=== PATIENT | female | born 1980 | race Caucasian/White ===

== ENCOUNTER 2017-03-17 19:51 | Emergency (ER) | payer MEDICAID ==
[~2017-03-17] VITALS: Ht 162.5 cm; Wt 61.2 kg
[~2017-03-17 19:51] MED LIST: BACTRIM DS 8001 TA1 PO; ULTRAM50 MG PO
[2017-03-17] MEDS ORDERED: NAPROSYN500 MG PO (20:14)
[2017-03-17] MEDS ORDERED: KEFLEX500 M1 PO (20:14)
== END 2017-03-17 20:29 | disposition home or self-care (01) ==
LOC: ED 19:51
DX: S61.011A Laceration without foreign body of right thumb without damage to nail, initial encounter (principal); F17.200 Nicotine dependence, unspecified, uncomplicated; W25.XXXA Contact with sharp glass, initial encounter; Y93.89 Activity, other specified; Y92.009 Unspecified place in unspecified non-institutional (private) residence as the place of occurrence of the external cause; Y99.9 Unspecified external cause status

== ENCOUNTER 2017-05-11 16:17 | Inpatient (IN) | payer MEDICAID ==
[~2017-05-11] VITALS: Ht 162.5 cm; Wt 65.3 kg
[~2017-05-11 16:17] MED LIST changes: +KEFLEX500 M1 PO; +NAPROSYN500 MG PO
[2017-05-11 16:48] VITALS: BP 134/80
[2017-05-11 17:26] LABS: BILIRUBIN 1+ (NEGATIVE); BLOOD NEGATIVE (NEGATIVE); CLARITY SL CLOUDY (CLEAR); COLOR YELLOW (YELLOW); GLUCOSE NEGATIVE (NEGATIVE); KETONE NEGATIVE (NEGATIVE); LEUKO ESTERASE NEGATIVE (NEGATIVE); NITRITE NEGATIVE (NEGATIVE); PH 5.5 (5.0-9.0); PROTEIN TRACE (NEGATIVE); SPECIFIC GRAVITY >= 1.030 (1.005-1.030)
[2017-05-11 17:31] LABS: BASO # 0.1 10*3/uL (0.0-0.1); BASO % 0.6 % (0.0-1.0); EOS # 0.1 10*3/uL (0.0-0.4); HEMATOCRIT 41.9 % (37.0-47.0); LYMPH # 3.1 10*3/uL (1.3-4.4); LYMPH % 26.4 % (27.0-41.0); MEAN CELL VOLUME 93.3 fl (81.0-99.0); MEAN CORPUSCULAR HGB 31.2 pg (27.0-31.0); MEAN CORPUSCULAR HGB CONC 33.4 g/dl (33.0-37.0); MEAN PLATELET VOLUME 9.8 fl (9.6-12.3); MONO # 1.1 10*3/uL (0.1-1.0); MONO % 9.3 % (3.0-9.0); NEUT # 7.4 10*3/uL (2.3-7.9); NEUT % 62.4 % (47.0-73.0); PLATELET COUNT AUTOMATED 176 10*3/uL (130-400); RED BLOOD COUNT 4.49 10*6/uL (4.10-5.10); WHITE BLOOD COUNT 11.9 10*3/uL (4.8-10.8)
[2017-05-11 17:34] LABS: URINE AMPHETAMINES < 1000 (1000ng/ml); URINE BARBITURATES < 200 (200ng/ml); URINE COCAINE > 300 (300ng/ml)
[2017-05-11 17:39] LABS: INTERNATIONAL NORM RATIO 1.1 (2.0-3.5)
[2017-05-11 17:41] LABS: BACTERIA 1+; MUCOUS 1+
[2017-05-11 17:42] LABS: EPITHELIAL CELLS 21-30
[2017-05-11 17:43] LABS: URINE REFLEX COMMENT NO (NO)
[2017-05-11 17:48] LABS: ALBUMIN 3.5 gm/dl (3.1-4.5); ALKALINE PHOSPHATASE 75 U/L (45-117); BILIRUBIN, TOTAL 0.6 mg/dl (0.2-1.0); BUN 12 mg/dl (7-24); CARBON DIOXIDE 27 mmol/L (21-32); CHLORIDE 105 mmol/L (98-107); EST GLOM FILT AFRICAN AMERICAN > 60 ml/min; GLUCOSE 89 mg/dL (65-99); POTASSIUM 3.8 mmol/L (3.5-5.1); SGOT/AST 32 IU/L (3-35); SGPT/ALT 32 U/L (12-78); SODIUM 142 mmol/L (136-145); TOTAL PROTEIN 8.2 gm/dL (6.4-8.2)
[2017-05-11 20:00] VITALS: BP 107/77
[2017-05-12] VITALS: BP 104/73
[2017-05-12 04:00] VITALS: BP 96/70
[2017-05-12 08:00] VITALS: BP 96/51
[2017-05-12 12:00] VITALS: BP 111/48; BP 94/79
== END 2017-05-12 15:34 | disposition left against medical advice (07) | DRG 894 ==
LOC: 4E 16:17
PROVIDERS: Hospitalist
DX: F11.23 Opioid dependence with withdrawal (principal); F14.10 Cocaine abuse, uncomplicated; G25.81 Restless legs syndrome; F41.9 Anxiety disorder, unspecified; Z88.6 Allergy status to analgesic agent; Z88.5 Allergy status to narcotic agent; F12.10 Cannabis abuse, uncomplicated; Z71.6 Tobacco abuse counseling; D72.829 Elevated white blood cell count, unspecified; Z53.21 Procedure and treatment not carried out due to patient leaving prior to being seen by health care provider

== ENCOUNTER 2017-08-22 14:39 | Emergency (ER) | payer MEDICAID ==
[~2017-08-22] VITALS: Ht 162.5 cm; Wt 62.1 kg
[2017-08-22 15:26] LABS: BILIRUBIN NEGATIVE (NEGATIVE); BLOOD 2+ (NEGATIVE); CLARITY CLOUDY (CLEAR); COLOR YELLOW (YELLOW); GLUCOSE NEGATIVE (NEGATIVE); KETONE NEGATIVE (NEGATIVE); LEUKO ESTERASE 3+ (NEGATIVE); NITRITE POSITIVE (NEGATIVE); SPECIFIC GRAVITY 1.025 (1.005-1.030)
[2017-08-22 15:33] LABS: BACTERIA 4+; EPITHELIAL CELLS 35-40; RBC 41-50 rbc/hpf (0-2); WBC 51-100 wbc/hpf (0-5)
[2017-08-22] MEDS ORDERED: MACROBID100 M1 PO (15:51)
== END 2017-08-22 16:09 | disposition home or self-care (01) ==
LOC: ED 14:39
PROVIDERS: Physician Assistant
DX: N30.01 Acute cystitis with hematuria (principal); A59.9 Trichomoniasis, unspecified; F17.200 Nicotine dependence, unspecified, uncomplicated; Z88.5 Allergy status to narcotic agent

== ENCOUNTER 2018-02-18 05:22 | Inpatient (IN) | payer MEDICAID ==
[~2018-02-18] VITALS: Ht 162.5 cm; Wt 69.9 kg
[~2018-02-18 05:22] MED LIST changes: +MACROBID100 M1 PO
[2018-02-18 05:24] VITALS: BP 127/91
[2018-02-18 05:52] LABS: BILIRUBIN 1+ (NEGATIVE); BLOOD 1+ (NEGATIVE); CLARITY CLOUDY (CLEAR); COLOR YELLOW (YELLOW); GLUCOSE NEGATIVE (NEGATIVE); KETONE NEGATIVE (NEGATIVE); LEUKO ESTERASE 2+ (NEGATIVE); NITRITE POSITIVE (NEGATIVE); SPECIFIC GRAVITY 1.025 (1.005-1.030)
[2018-02-18 06:00] LABS: URINE AMPHETAMINES < 1000 (1000ng/ml); URINE BARBITURATES < 200 (200ng/ml); URINE BENZODIAZEPINES < 200 (200ng/ml); URINE CANNABINOIDS (THC) < 50 (50ng/ml); URINE COCAINE > 300 (300ng/ml); URINE METHADONE < 300 (300ng/ml); URINE OPIATES > 300 (300ng/ml)
[2018-02-18 06:04] LABS: URINE PHENCYCLIDINE < 25 (25ng/ml)
[2018-02-18 06:09] LABS: BACTERIA 4+; WBC 16-20 wbc/hpf (0-5)
[2018-02-18 06:27] LABS: HEMATOCRIT 45.3 % (37.0-47.0); HEMOGLOBIN 14.8 g/dl (12.0-16.0); MEAN CELL VOLUME 91.3 fl (81.0-99.0); MEAN CORPUSCULAR HGB 29.8 pg (27.0-31.0); MEAN CORPUSCULAR HGB CONC 32.7 g/dl (33.0-37.0); MEAN PLATELET VOLUME 9.8 fl (9.6-12.3); PLATELET COUNT AUTOMATED 162 10*3/uL (130-400); RED BLOOD COUNT 4.96 10*6/uL (4.10-5.10); RED CELL DISTRI WIDTH 12.9 % (0-14.5); WHITE BLOOD COUNT 22.8 10*3/uL (4.8-10.8)
[2018-02-18 06:41] LABS: ALBUMIN 3.5 gm/dl (3.1-4.5); ALKALINE PHOSPHATASE 68 U/L (45-117); BUN 11 mg/dl (7-24); CHLORIDE 101 mmol/L (98-107); CREATININE 0.86 mg/dL (0.55-1.02); SGOT/AST 22 IU/L (3-35); SGPT/ALT 21 U/L (12-78); SODIUM 134 mmol/L (136-145); TOTAL PROTEIN 8.3 gm/dL (6.4-8.2)
[2018-02-18 06:56] LABS: BASOPHILS 1 % (0-1); PLATELET SUFFICIENCY NORMAL (NORMAL); TOTAL CELLS COUNTED 100 #CELLS
[2018-02-18 07:38] VITALS: BP 125/80
[2018-02-18 07:55] VITALS: BP 120/80
== END 2018-02-18 11:30 | disposition left against medical advice (07) | DRG 603 ==
LOC: ED 05:22 → EDHOLD 06:42 → 4E 06:42
PROVIDERS: Emergency Medicine Emergency Medical Services
DX: L03.114 Cellulitis of left upper limb (principal); F11.90 Opioid use, unspecified, uncomplicated; F14.90 Cocaine use, unspecified, uncomplicated; F12.90 Cannabis use, unspecified, uncomplicated; F19.10 Other psychoactive substance abuse, uncomplicated; Z53.21 Procedure and treatment not carried out due to patient leaving prior to being seen by health care provider; Z88.6 Allergy status to analgesic agent; Z87.440 Personal history of urinary (tract) infections; Z82.49 Family history of ischemic heart disease and other diseases of the circulatory system; Z72.0 Tobacco use

== ENCOUNTER 2018-02-19 15:01 | Inpatient (IN) | payer MEDICAID ==
[~2018-02-19] VITALS: Ht 162.5 cm; Wt 70.3 kg
--- NOTE | ~2018-02-19 | O ---
[place], [place] OPERATIVE NOTE NAME: YONATHAN TERRELL UNIT #: [id number] ROOM: 532 DOCTOR: TAI VALLEJO DO BIRTHDATE: [birth year] DOS: 02/20/2018 PREPROCEDURE DIAGNOSES: Left hand cellulitis and abscess. POSTOPERATIVE DIAGNOSES: Left hand cellulitis and abscess. PROCEDURES: Incision, drainage and debridement of left hand cellulitis and abscess. SURGEON: Tai Vallejo DO SAFE AND VAULT MECHANIC: Jt Lubin DO. ANESTHESIA: Sergio, CUSTOM BOW MAKER and general with LMA intubation. INDICATIONS: The patient is a 38-year-old female with a history of increasing erythema, pain and swelling in the left hand. She denies recent IV drug use, but states she has used IV drugs in the past. She states that she tried to drain her own hand using a razor blade. This was along the ulnar border of the hand. The hand was red, swollen and tender on both the dorsal and the volar sides. The fingers were not significantly swollen. There was good capillary refill and sensation. PROCEDURE IN DETAIL: The left hand was marked in the holding area. The patient was brought to the operative suite. Tourniquet was applied to the left upper arm, but not inflated. A general anesthetic with LMA intubation was performed. Timeout was performed. Left upper extremity was prepped and draped in the usual orthopedic manner. The self-inflicted laceration at the ulnar border of the thenar eminence was approximately 1 cm in length. This was extended 1 cm in each direction proximally and distally. Subcutaneous tissue was spread down through the fascia. Gross purulence was present at the wound and was cultured. The incision was irrigated with 3 liters of normal saline both volar and dorsally. A second incision was made at the dorsal hand approximately 1 cm in length. Subcutaneous tissue was spread down to the level of the interosseous muscles. There was no further purulence at the dorsal surface of the hand. The soft tissue was spread towards the middle of the palm. No further purulence was noted. The ulnar incision was packed with iodoform gauze soaked in Marcaine 0.5% plain. The dorsal incision was soaked in a similar manner. The hand was injected with Marcaine 0.5% plain. Adaptic, cast padding, 4 x 4 and a well-padded volar splint was applied. The anesthetic was reversed. The patient was extubated and taken to recovery room in satisfactory condition. [place], [place] OPERATIVE NOTE NAME: YONATHAN TERRELL UNIT #: [id number] ROOM: [facility] DOCTOR: TAI VALLEJO DO BIRTHDATE: [birth year] Sponge and needle count correct. ESTIMATED BLOOD LOSS: 20 mL. SPECIMENS: Culture. DRAINS: None. IMPLANTS: Two separate pieces of 0.5 inch iodoform. COMPLICATIONS: None. TAI VALLEJO DO CM:OPRECORD:OPERATIVE NOTE [id number] TAI VALLEJO DO 02/28/18 0718 interface
[2018-02-19 15:05] VITALS: BP 99/73
[2018-02-19 16:09] LABS: HEMATOCRIT 40.5 % (37.0-47.0); HEMOGLOBIN 13.6 g/dl (12.0-16.0); MEAN CELL VOLUME 90.2 fl (81.0-99.0); MEAN CORPUSCULAR HGB 30.3 pg (27.0-31.0); MEAN CORPUSCULAR HGB CONC 33.6 g/dl (33.0-37.0); PLATELET COUNT AUTOMATED 164 10*3/uL (130-400); RED BLOOD COUNT 4.49 10*6/uL (4.10-5.10); RED CELL DISTRI WIDTH 12.8 % (0-14.5)
[2018-02-19 16:15] LABS: BILIRUBIN 1+ (NEGATIVE); BLOOD 2+ (NEGATIVE); CLARITY CLOUDY (CLEAR); COLOR YELLOW (YELLOW); GLUCOSE NEGATIVE (NEGATIVE); KETONE TRACE (NEGATIVE); LEUKO ESTERASE NEGATIVE (NEGATIVE); NITRITE POSITIVE (NEGATIVE); PH 5.5 (5.0-9.0); SPECIFIC GRAVITY >= 1.030 (1.005-1.030)
[2018-02-19 16:23] LABS: URINE AMPHETAMINES < 1000 (1000ng/ml); URINE BARBITURATES < 200 (200ng/ml); URINE BENZODIAZEPINES < 200 (200ng/ml); URINE CANNABINOIDS (THC) > 50 (50ng/ml); URINE COCAINE > 300 (300ng/ml); URINE METHADONE < 300 (300ng/ml); URINE OPIATES > 300 (300ng/ml)
[2018-02-19 16:24] LABS: ALBUMIN 3.2 gm/dl (3.1-4.5); ALKALINE PHOSPHATASE 68 U/L (45-117); BUN 12 mg/dl (7-24); CHLORIDE 101 mmol/L (98-107); CREATININE 0.73 mg/dL (0.55-1.02); POTASSIUM 3.9 mmol/L (3.5-5.1); SGOT/AST 26 IU/L (3-35); SGPT/ALT 21 U/L (12-78); SODIUM 134 mmol/L (136-145); TOTAL PROTEIN 7.8 gm/dL (6.4-8.2)
[2018-02-19 16:24] LABS: BACTERIA 2+; MUCOUS 1+
[2018-02-19 16:25] LABS: URINE PHENCYCLIDINE < 25 (25ng/ml)
[2018-02-19 16:30] LABS: PLATELET SUFFICIENCY NORMAL (NORMAL); TOTAL CELLS COUNTED 100 #CELLS
[2018-02-19 18:15] VITALS: BP 119/68
[2018-02-19 18:31] VITALS: BP 119/68
[2018-02-19 20:00] VITALS: BP 145/58
[2018-02-20] VITALS (12 sets, daily range): BP systolic 100–121; BP diastolic 63–90
[2018-02-20 06:54] LABS: ALBUMIN 2.4 gm/dl (3.1-4.5); BUN 13 mg/dl (7-24); CHLORIDE 107 mmol/L (98-107); CHOLESTEROL 120 mg/dL (<200); CREATININE 0.74 mg/dL (0.55-1.02); PHOSPHOROUS 2.4 mg/dL (2.5-4.9); POTASSIUM 3.5 mmol/L (3.5-5.1); SGOT/AST 29 IU/L (3-35); SGPT/ALT 17 U/L (12-78); SODIUM 138 mmol/L (136-145); TOTAL PROTEIN 6.5 gm/dL (6.4-8.2); TRIGLYCERIDES 83 mg/dl (<150); VLDL CHOLESTEROL 17 mg/dL (6-40)
[2018-02-20 06:57] LABS: BASO % 0.2 % (0.0-1.0); EOS # 0.2 10*3/uL (0.0-0.4); EOS % 1.6 % (1.0-4.0); HEMATOCRIT 40.3 % (37.0-47.0); HEMOGLOBIN 13.2 g/dl (12.0-16.0); LYMPH # 1.4 10*3/uL (1.3-4.4); LYMPH % 10.4 % (27.0-41.0); MEAN CORPUSCULAR HGB 30.1 pg (27.0-31.0); MEAN CORPUSCULAR HGB CONC 32.8 g/dl (33.0-37.0); MEAN PLATELET VOLUME 10.3 fl (9.6-12.3); MONO # 0.9 10*3/uL (0.1-1.0); MONO % 6.3 % (3.0-9.0); NEUT # 11.3 10*3/uL (2.3-7.9); NEUT % 81.1 % (47.0-73.0); PLATELET COUNT AUTOMATED 125 10*3/uL (130-400); RED BLOOD COUNT 4.38 10*6/uL (4.10-5.10); RED CELL DISTRI WIDTH 12.8 % (0-14.5); WHITE BLOOD COUNT 13.9 10*3/uL (4.8-10.8)
[2018-02-20 07:00] LABS: ALKALINE PHOSPHATASE 65 U/L (45-117); HDL CHOLESTEROL 26 mg/dl (40-60); LDL CHOLESTEROL 77 mg/dL (9-159); THYROID STIM HORMONE (HS) 0.755 uIU/ml (0.358-4.75)
[2018-02-21] VITALS: BP 116/76
== END 2018-02-21 10:45 | disposition left against medical advice (07) | DRG 579 ==
LOC: ED 15:01 → EDHOLD 17:23 → 5E 17:23
PROVIDERS: Internal Medicine; Nurse Practitioner Family
PROC: 0J9K0ZZ Drainage of Left Hand Subcutaneous Tissue and Fascia, Open Approach (ICD-10-PCS; principal; 2018-02-19)
PROC: 2W3FX1Z Immobilization of Left Hand using Splint (ICD-10-PCS; 2018-02-19)
DX: L02.512 Cutaneous abscess of left hand (principal); E43 Unspecified severe protein-calorie malnutrition; K76.0 Fatty (change of) liver, not elsewhere classified; L03.114 Cellulitis of left upper limb; E87.1 Hypo-osmolality and hyponatremia; N39.0 Urinary tract infection, site not specified; E83.39 Other disorders of phosphorus metabolism; R73.9 Hyperglycemia, unspecified; N83.202 Unspecified ovarian cyst, left side; F11.10 Opioid abuse, uncomplicated; F17.200 Nicotine dependence, unspecified, uncomplicated; F12.10 Cannabis abuse, uncomplicated; F14.10 Cocaine abuse, uncomplicated; E53.8 Deficiency of other specified B group vitamins; Z53.21 Procedure and treatment not carried out due to patient leaving prior to being seen by health care provider; Z82.49 Family history of ischemic heart disease and other diseases of the circulatory system; Z71.6 Tobacco abuse counseling; Z68.25 Body mass index [BMI] 25.0-25.9, adult

== ENCOUNTER 2018-11-04 22:20 | Emergency (ER) | payer MEDICAID ==
[~2018-11-04] VITALS: Ht 165.1 cm; Wt 81.6 kg
--- NOTE | ~2018-11-04 | EKG ---
[place], [place] ELECTROCARDIOGRAM REPORT NAME: YONATHAN TERRELL UNIT #: [id number] ROOM: DOCTOR: EPIPHANY DRAFT REPORT BIRTHDATE: [birth year] [facility] Test Date: 2018-11-04 Test Time: 22:50:48 Pat Name: YONATHAN TERRELL Department: ED Room: 1 Gender: F Fluid Power Mechanic: Dian Ulloa : 1980 Requested By: CARLOS MCLAUGHLIN Order Number: [id number] Reading MD: Santiago Mejia MD Measurements Intervals [place] Rate: 80 P: 65 IL: 152 QRS: 62 QRSD: 88 T: 51 QT: 388 QTc: 448 Interpretive Statements Sinus rhythm Abnormal R-wave progression, early transition Nonspecific T abnormalities, anterior leads Compared to ECG 10/31/2018 12:29:54 No significant changes Electronically Signed On 11-07-2018 8:25:05 PST by Santiago Mejia MD CM:EKGRPT:ELECTROCARDIOGRAM REPORT [id number] CARLOS MCLAUGHLIN MD EPIPHANY DRAFT REPORT CARLOS MCLAUGHLIN MD
[2018-11-04 22:55] LABS: HEMATOCRIT 35.2 % (37.0-47.0); HEMOGLOBIN 11.7 g/dl (12.0-16.0); MEAN CELL VOLUME 92.1 fl (81.0-99.0); MEAN CORPUSCULAR HGB 30.6 pg (27.0-31.0); MEAN CORPUSCULAR HGB CONC 33.2 g/dl (33.0-37.0); MEAN PLATELET VOLUME 9.6 fl (9.6-12.3); PLATELET COUNT AUTOMATED 170 10*3/uL (130-400); RED BLOOD COUNT 3.82 10*6/uL (4.10-5.10); RED CELL DISTRI WIDTH 13.9 % (0-14.5); WHITE BLOOD COUNT 12.3 10*3/uL (4.8-10.8)
[2018-11-04 23:10] LABS: ALKALINE PHOSPHATASE 51 U/L (45-117); BUN 12 mg/dl (7-24); CHLORIDE 112 mmol/L (98-107); CREATININE 0.84 mg/dL (0.55-1.02); SGOT/AST 44 IU/L (3-35); SGPT/ALT 50 U/L (12-78); SODIUM 143 mmol/L (136-145)
[2018-11-04 23:12] LABS: ACETAMINOPHEN (TYLENOL) < 5.0 ug/ml (10-30)
[2018-11-04 23:15] LABS: PLATELET SUFFICIENCY NORMAL (NORMAL); TOTAL CELLS COUNTED 100 #CELLS
[2018-11-04 23:19] LABS: ETHYL ALCOHOL < 3.0 mg/dl (<3)
== END 2018-11-05 00:20 | disposition home or self-care (01) ==
LOC: ED 22:20
PROVIDERS: Emergency Medicine Emergency Medical Services
DX: T50.901A Poisoning by unspecified drugs, medicaments and biological substances, accidental (unintentional), initial encounter (principal); R09.2 Respiratory arrest; E87.6 Hypokalemia; R00.0 Tachycardia, unspecified; R23.0 Cyanosis; R40.20 Unspecified coma; Y92.89 Other specified places as the place of occurrence of the external cause

== ENCOUNTER 2018-11-08 | Emergency (ER) | payer MEDICAID ==
[2018-11-08 14:25] LABS: BASO % 0.2 % (0.0-1.0); EOS # 0.1 10*3/uL (0.0-0.4); EOS % 0.5 % (1.0-4.0); HEMATOCRIT 38.2 % (37.0-47.0); HEMOGLOBIN 12.6 g/dl (12.0-16.0); LYMPH # 1.3 10*3/uL (1.3-4.4); LYMPH % 9.5 % (27.0-41.0); MEAN CELL VOLUME 93.6 fl (81.0-99.0); MEAN CORPUSCULAR HGB 30.9 pg (27.0-31.0); MEAN PLATELET VOLUME 9.5 fl (9.6-12.3); MONO # 0.8 10*3/uL (0.1-1.0); MONO % 5.9 % (3.0-9.0); NEUT # 10.9 10*3/uL (2.3-7.9); NEUT % 83.1 % (47.0-73.0); PLATELET COUNT AUTOMATED 166 10*3/uL (130-400); RED BLOOD COUNT 4.08 10*6/uL (4.10-5.10); RED CELL DISTRI WIDTH 14.4 % (0-14.5); WHITE BLOOD COUNT 13.1 10*3/uL (4.8-10.8)
[2018-11-08 14:40] LABS: ALBUMIN 3.2 gm/dl (3.1-4.5); ALKALINE PHOSPHATASE 48 U/L (45-117); BUN 12 mg/dl (7-24); CHLORIDE 99 mmol/L (98-107); CREATININE 0.96 mg/dL (0.55-1.02); POTASSIUM 3.6 mmol/L (3.5-5.1); SGOT/AST 21 IU/L (3-35); SGPT/ALT 31 U/L (12-78); SODIUM 137 mmol/L (136-145); TOTAL PROTEIN 7.6 gm/dL (6.4-8.2)
[2018-11-08 14:48] LABS: B-hCG (QUALITATIVE) NEGATIVE (NEGATIVE)
[2018-11-08 14:51] LABS: ACETAMINOPHEN (TYLENOL) < 5.0 ug/ml (10-30); ETHYL ALCOHOL < 3.0 mg/dl (<3)
[2018-11-08 15:29] LABS: BILIRUBIN NEGATIVE (NEGATIVE); BLOOD 1+ (NEGATIVE); CLARITY CLOUDY (CLEAR); COLOR YELLOW (YELLOW); GLUCOSE TRACE (NEGATIVE); KETONE NEGATIVE (NEGATIVE); LEUKO ESTERASE 1+ (NEGATIVE); NITRITE NEGATIVE (NEGATIVE); SPECIFIC GRAVITY 1.025 (1.005-1.030)
[2018-11-08 15:46] LABS: EPITHELIAL CELLS 16-20
[2018-11-08 15:47] LABS: BACTERIA 4+
[2018-11-08 15:50] LABS: URINE AMPHETAMINES < 1000 (1000ng/ml); URINE BARBITURATES < 200 (200ng/ml); URINE BENZODIAZEPINES < 200 (200ng/ml); URINE CANNABINOIDS (THC) < 50 (50ng/ml); URINE COCAINE > 300 (300ng/ml); URINE METHADONE < 300 (300ng/ml); URINE OPIATES < 300 (300ng/ml)
[2018-11-08 15:52] LABS: URINE PHENCYCLIDINE < 25 (25ng/ml)
[2018-11-08] MEDS ORDERED: NARCAN4 MG NAS (15:53)
== END 2018-11-08 17:35 | disposition home or self-care (01) ==
PROVIDERS: Emergency Medicine
DX: S20.219A Contusion of unspecified front wall of thorax, initial encounter (principal); S40.022A Contusion of left upper arm, initial encounter; T40.601A Poisoning by unspecified narcotics, accidental (unintentional), initial encounter; F19.10 Other psychoactive substance abuse, uncomplicated; F11.90 Opioid use, unspecified, uncomplicated; R41.0 Disorientation, unspecified; R11.0 Nausea; F12.10 Cannabis abuse, uncomplicated; F17.200 Nicotine dependence, unspecified, uncomplicated; G40.909 Epilepsy, unspecified, not intractable, without status epilepticus; X58.XXXA Exposure to other specified factors, initial encounter; Y93.89 Activity, other specified; Y92.481 Parking lot as the place of occurrence of the external cause; Y99.8 Other external cause status

== ENCOUNTER 2019-06-21 11:32 | Inpatient (IN) | payer SELFPAY ==
[~2019-06-21] VITALS: Wt 67.1 kg
--- NOTE | ~2019-06-21 | EKG ---
[place], [place] ELECTROCARDIOGRAM REPORT NAME: YONATHAN TERRELL UNIT #: [id number] ROOM: [facility] DOCTOR: BEBE DRAFT REPORT BIRTHDATE: [birth year] [facility] Test Date: 2019-06-21 Test Time: 12:03:16 Pat Name: YONATHAN TERRELL Department: Room: [facility] Gender: F Getter Operator: : 1980 Requested By: DAISY ABDULLAHI Order Number: [id number] Reading MD: Chalino Bach MD Measurements Intervals Wilson Rate: 114 P: 52 TN: 162 QRS: 65 QRSD: 70 T: 65 QT: 319 QTc: 440 Interpretive Statements Sinus tachycardia Borderline repolarization abnormality Electronically Signed On 06-22-2019 8:03:52 PDT by Chalino Bach MD CM:EKGRPT:ELECTROCARDIOGRAM REPORT [id number] DAISY SPENCE DRAFT REPORT DAISY ABDULLAHI MD
[~2019-06-21 11:32] MED LIST changes: +NARCAN4 MG NAS
[2019-06-21 11:35] VITALS: BP 125/71
[2019-06-21 12:16] LABS: BASO # 0.1 10*3/uL (0.0-0.1); BASO % 0.3 % (0.0-1.0); EOS # 0.1 10*3/uL (0.0-0.4); EOS % 0.3 % (1.0-4.0); HEMATOCRIT 48.9 % (37.0-47.0); HEMOGLOBIN 16.1 g/dl (12.0-16.0); LYMPH # 3.1 10*3/uL (1.3-4.4); MEAN CELL VOLUME 91.6 fl (81.0-99.0); MEAN CORPUSCULAR HGB 30.1 pg (27.0-31.0); MEAN CORPUSCULAR HGB CONC 32.9 g/dl (33.0-37.0); MEAN PLATELET VOLUME 10.3 fl (9.6-12.3); MONO # 1.4 10*3/uL (0.1-1.0); MONO % 7.9 % (3.0-9.0); NEUT # 12.8 10*3/uL (2.3-7.9); NEUT % 73.2 % (47.0-73.0); PLATELET COUNT AUTOMATED 291 10*3/uL (130-400); RED BLOOD COUNT 5.34 10*6/uL (4.10-5.10); RED CELL DISTRI WIDTH 12.6 % (0-14.5); WHITE BLOOD COUNT 17.5 10*3/uL (4.8-10.8)
[2019-06-21 12:28] VITALS: BP 122/84
--- NOTE | 2019-06-21 12:29 | NUR ---
PT HAS AREAS TO BILATERAL LEGS WITH OBVIOUS TRACK IQBAL. REMAINS TREMULOUS AND CONFUSED. BROWN LICONA
[2019-06-21 12:33] LABS: ACT PARTIAL THROMBO TIME 26.6 SECONDS (20.0-32.1); ALBUMIN 3.8 gm/dl (3.1-4.5); ALKALINE PHOSPHATASE 60 U/L (45-117); BUN 16 mg/dl (7-24); CHLORIDE 108 mmol/L (98-107); CPK 70 U/L (26-192); CREATININE 1.16 mg/dL (0.55-1.02); INTERNATIONAL NORM RATIO 1.1 (2.0-3.5); SGOT/AST 12 IU/L (3-35); SGPT/ALT 26 U/L (12-78); SODIUM 140 mmol/L (136-145); TOTAL PROTEIN 8.5 gm/dL (6.4-8.2)
[2019-06-21 12:35] LABS: B-hCG (QUALITATIVE) NEGATIVE (NEGATIVE)
[2019-06-21 12:47] LABS: ETHYL ALCOHOL < 3.0 mg/dl (<3); TROPONIN I < 0.015 ng/ml (<0.045)
[2019-06-21 12:51] LABS: BILIRUBIN NEGATIVE (NEGATIVE); BLOOD TRACE-INTACT (NEGATIVE); CLARITY CLOUDY (CLEAR); COLOR YELLOW (YELLOW); GLUCOSE NEGATIVE (NEGATIVE); KETONE TRACE (NEGATIVE); LEUKO ESTERASE NEGATIVE (NEGATIVE); NITRITE NEGATIVE (NEGATIVE); SPECIFIC GRAVITY >= 1.030 (1.005-1.030)
[2019-06-21 13:00] VITALS: BP 119/81
[2019-06-21 13:05] LABS: BACTERIA 4+
[2019-06-21 13:09] LABS: URINE AMPHETAMINES > 1000 (1000ng/ml); URINE BARBITURATES < 200 (200ng/ml); URINE BENZODIAZEPINES < 200 (200ng/ml); URINE CANNABINOIDS (THC) < 50 (50ng/ml); URINE COCAINE < 300 (300ng/ml); URINE METHADONE < 300 (300ng/ml); URINE OPIATES < 300 (300ng/ml)
[2019-06-21 13:15] LABS: URINE PHENCYCLIDINE < 25 (25ng/ml)
[2019-06-21 14:04] VITALS: BP 114/84
--- NOTE | 2019-06-21 14:25 | NUR ---
Was talking to Dr. Lubin outside of patients door regarding patients condition. Dare loud talking coming from room and found the patient yelling at the patient in bed #1 about a dog. When we approached the patient she was completely naked, disoriented with tremors and beads of sweat on her face.
--- NOTE | 2019-06-21 14:45 | NUR ---
Nurse to nurse report given to [facility] RN.
--- NOTE | 2019-06-21 14:50 | NUR ---
A 39, admitted to [facility], under the services of AIMEE Colin DO with a diagnosis of Metabolic Encephalopathy. Chief complaint is Seizure. Patient arrived via stretcher from ER. Monitor applied. Initial assessment completed. Vital signs taken and recorded. AIMEE COLIN DO notified of admission to the unit. Orders received. See assessment for past medical history, medications and allergies. Patient and/or family oriented to unit. [address] visitation policy reviewed. Clothing/patient valuable form completed. KANDY GIRON
[2019-06-21 15:45] VITALS: BP 113/79
--- NOTE | 2019-06-21 15:48 | NUR ---
PT TRANSFERED FROM AT THIS TIME. PT IS AGITATED, FLIGHT OF IDEAS. TWITCHING. CONFUSED TO PLACE AND TIME. PT IN CONSTANT MOTION. SINUS TACHY ON MONITOR AT 102. BP 113/79. POX 99% ON ROOM AIR.
--- NOTE | 2019-06-21 19:29 | NUR ---
ASSUMED CARE OF PATIENT AT THIS TIME. RECEIVED REPORT FROM ZACH CHA RN.
--- NOTE | 2019-06-21 19:55 | NUR ---
PATIENT ASSESSMENT COMPLETED. PATIENT APPEARS TO STILL BE CONFUSED. ASKED WHERE SHE WAS. PATIENT WAS REORIENTED TO THE UNIT, AND SHE ASKED HOW FAR WE WERE FROM [facility]. PATIENT'S VITALS ARE STABLE. NO S/S OF DISTRESS. PATIENT TAKES DIRECTION LITERAL. ASKED TO LAY DOWN, AND PATIENT ATTEMPTED TO LAY BACK ACROSS THE BED SIDEWAYS INTO THE RAILING RATHER THAN LAY DOWN ON THE PILLOW LONG WAYS. PATIENT CONTINUES TO TRY TO CLIMB UP OUT OF BED AND STAND UNASSISTED. PATIENT IS RATHER UNSTEADY AND UNCOORDINATED IN HER MOVEMENTS. WITHIN SIGHT OF RN STATION.
[2019-06-21 20:00] VITALS: BP 116/84
--- NOTE | 2019-06-21 21:00 | NUR ---
DR EDWARDS NOTIFIED OF PATIENT'S RED, DRAINING EYE. YELLOW DRAINAGE. SWOLLEN.
--- NOTE | 2019-06-21 21:02 | NUR ---
PATIENT IS TALKING ABOUT HAVING TO WORK AT 3AM. PATIENT STILL APPEARS TO BE CONFUSED.
[2019-06-22] VITALS: BP 122/76
--- NOTE | 2019-06-22 00:31 | NUR ---
PATIENT REMAINS RESTLESS AND CONTINUES TO FLOP AROUND ON THE BED. PATIENT HAS REQUESTED FOOD MULTIPLE TIMES. GAVE BOXED LUNCH. PATIENTS VSS. NO S/S OF DISTRESS. WITHIN SIGHT OF NURSING STAFF. PATIENT APPEARS TO TALK TO HERSELF AT TIMES. LOOKS FOR THINGS THAT ARE NOT THERE.
--- NOTE | 2019-06-22 02:08 | NUR ---
PATIENT HAD ALMOST PULLED IV OUT. HEP LOCK BROKE AND SHE WAS BLEEDING FROM HEP LOCK. REPLACED HELP LOCK AND DRESSING ON IV. FLUSHED AND IV STILL PATENT. SECURED WITH TAPE AND KERLIX.
[2019-06-22 05:15] VITALS: BP 110/81
--- NOTE | 2019-06-22 05:18 | NUR ---
PATIENT RESTING IN BED. FELL ASLEEP FOR A SHORT WHILE. HAD BLOOD DRAWN BY GROUND WATER TECHNICIAN. TOLERATED WELL. VSS. NO S/S OF DISTRESS. IN SIGHT OF NURSE.
[2019-06-22 05:45] LABS: BUN 10 mg/dl (7-24); CHLORIDE 110 mmol/L (98-107); CREATININE 0.78 mg/dL (0.55-1.02); POTASSIUM 3.8 mmol/L (3.5-5.1); SODIUM 141 mmol/L (136-145)
[2019-06-22 06:57] LABS: BASO # 0.1 10*3/uL (0.0-0.1); BASO % 0.4 % (0.0-1.0); EOS # 0.2 10*3/uL (0.0-0.4); EOS % 1.5 % (1.0-4.0); HEMATOCRIT 42.8 % (37.0-47.0); HEMOGLOBIN 13.8 g/dl (12.0-16.0); LYMPH # 4.2 10*3/uL (1.3-4.4); LYMPH % 33.7 % (27.0-41.0); MEAN CELL VOLUME 92.2 fl (81.0-99.0); MEAN CORPUSCULAR HGB 29.7 pg (27.0-31.0); MEAN CORPUSCULAR HGB CONC 32.2 g/dl (33.0-37.0); MEAN PLATELET VOLUME 10.1 fl (9.6-12.3); MONO # 1.2 10*3/uL (0.1-1.0); MONO % 9.4 % (3.0-9.0); NEUT # 6.8 10*3/uL (2.3-7.9); NEUT % 54.8 % (47.0-73.0); PLATELET COUNT AUTOMATED 189 10*3/uL (130-400); RED BLOOD COUNT 4.64 10*6/uL (4.10-5.10); RED CELL DISTRI WIDTH 12.8 % (0-14.5); WHITE BLOOD COUNT 12.4 10*3/uL (4.8-10.8)
[2019-06-22 08:00] VITALS: BP 130/90
--- NOTE | 2019-06-22 09:30 | NUR ---
DR BHAGAT IN TO SEE PT. DISCHARGE ORDERS RECEIVED.
[2019-06-22] MEDS ORDERED: TOBRADEX 0.1%-0.5 ML OPH (09:33)
--- NOTE | 2019-06-22 10:23 | NUR ---
Discharge instructions reviewed with patient/family. Patient receptive and verbalizes understanding. Follow-up care arranged. Written instructions given to patient/family. ZACH CHA
--- NOTE | 2019-06-22 10:50 | NUR ---
PT DISCHARGED AT THIS TIME.
== END 2019-06-22 10:50 | disposition home or self-care (01) | DRG 70 ==
LOC: ED 11:32 → EDHOLD 14:12 → 5E 14:12 → ICCU 15:40
PROVIDERS: Emergency Medicine; Family Medicine; ADMIT Family Medicine
DX: G93.41 Metabolic encephalopathy (principal); N17.0 Acute kidney failure with tubular necrosis; F17.210 Nicotine dependence, cigarettes, uncomplicated; E83.41 Hypermagnesemia; D72.829 Elevated white blood cell count, unspecified; R73.9 Hyperglycemia, unspecified; R00.0 Tachycardia, unspecified; F15.10 Other stimulant abuse, uncomplicated; G40.909 Epilepsy, unspecified, not intractable, without status epilepticus; Z71.6 Tobacco abuse counseling

== ENCOUNTER 2019-07-03 13:11 | Emergency (ER) | payer SELFPAY ==
[~2019-07-03] VITALS: Wt 63.5 kg
--- NOTE | ~2019-07-03 | EKG ---
[place], [place] ELECTROCARDIOGRAM REPORT NAME: YONATHAN TERRELL UNIT #: [id number] ROOM: DOCTOR: BEBE DRAFT REPORT BIRTHDATE: [birth year] [facility] Test Date: 2019-07-03 Test Time: 15:37:25 Pat Name: YONATHAN TERRELL Department: Room: Gender: F Photo Editor: : 1980 Requested By: ANTHONY ELLSWORTH Order Number: [id number] Reading MD: Kaylee Olsen MD Measurements Intervals [place] Rate: 77 P: 53 IN: 127 QRS: 50 QRSD: 69 T: 56 QT: 396 QTc: 449 Interpretive Statements Sinus rhythm Low voltage, precordial leads Compared to ECG 06/21/2019 12:03:16 Low QRS voltage now present Sinus tachycardia no longer present Electronically Signed On 07-14-2019 7:35:09 PDT by Kaylee Olsen MD CM:EKGRPT:ELECTROCARDIOGRAM REPORT [id number] ANTHONY CALZADA DRAFT REPORT ANTHONY ELLSWORTH DO
[~2019-07-03 13:11] MED LIST changes: +TOBRADEX 0.1%-0.5 ML OPH
[2019-07-03 13:49] LABS: BASO # 0.1 10*3/uL (0.0-0.1); BASO % 0.5 % (0.0-1.0); EOS # 0.2 10*3/uL (0.0-0.4); EOS % 1.7 % (1.0-4.0); HEMOGLOBIN 13.7 g/dl (12.0-16.0); LYMPH # 3.2 10*3/uL (1.3-4.4); LYMPH % 29.5 % (27.0-41.0); MEAN CELL VOLUME 91.5 fl (81.0-99.0); MEAN CORPUSCULAR HGB 29.8 pg (27.0-31.0); MEAN CORPUSCULAR HGB CONC 32.6 g/dl (33.0-37.0); MEAN PLATELET VOLUME 9.4 fl (9.6-12.3); MONO # 0.9 10*3/uL (0.1-1.0); MONO % 7.9 % (3.0-9.0); NEUT # 6.5 10*3/uL (2.3-7.9); NEUT % 60.1 % (47.0-73.0); PLATELET COUNT AUTOMATED 171 10*3/uL (130-400); RED BLOOD COUNT 4.59 10*6/uL (4.10-5.10); RED CELL DISTRI WIDTH 13.1 % (0-14.5); WHITE BLOOD COUNT 10.8 10*3/uL (4.8-10.8)
[2019-07-03 13:49] LABS: BILIRUBIN NEGATIVE (NEGATIVE); BLOOD 3+ (NEGATIVE); CLARITY SL CLOUDY (CLEAR); COLOR YELLOW (YELLOW); GLUCOSE NEGATIVE (NEGATIVE); KETONE NEGATIVE (NEGATIVE); LEUKO ESTERASE 1+ (NEGATIVE); NITRITE POSITIVE (NEGATIVE); PH 5.5 (5.0-9.0); SPECIFIC GRAVITY 1.025 (1.005-1.030)
[2019-07-03 14:18] LABS: BACTERIA 2+
[2019-07-03 14:26] LABS: URINE AMPHETAMINES > 1000 (1000ng/ml); URINE BARBITURATES < 200 (200ng/ml); URINE BENZODIAZEPINES < 200 (200ng/ml); URINE CANNABINOIDS (THC) < 50 (50ng/ml); URINE COCAINE < 300 (300ng/ml); URINE METHADONE < 300 (300ng/ml); URINE OPIATES < 300 (300ng/ml)
[2019-07-03 14:26] LABS: ALBUMIN 3.3 gm/dl (3.1-4.5); ALKALINE PHOSPHATASE 63 U/L (45-117); BUN 15 mg/dl (7-24); CHLORIDE 108 mmol/L (98-107); CREATININE 0.92 mg/dL (0.55-1.02); POTASSIUM 3.7 mmol/L (3.5-5.1); SGOT/AST 40 IU/L (3-35); SGPT/ALT 87 U/L (12-78); SODIUM 140 mmol/L (136-145); TOTAL PROTEIN 7.2 gm/dL (6.4-8.2)
[2019-07-03 14:28] LABS: URINE PHENCYCLIDINE < 25 (25ng/ml)
[2019-07-03 14:35] LABS: ETHYL ALCOHOL < 3.0 mg/dl (<3)
== END 2019-07-03 18:49 | disposition home or self-care (01) ==
LOC: ED 13:11
PROVIDERS: Emergency Medicine
DX: T40.2X1A Poisoning by other opioids, accidental (unintentional), initial encounter (principal); R41.0 Disorientation, unspecified; N39.0 Urinary tract infection, site not specified; F19.10 Other psychoactive substance abuse, uncomplicated; F17.210 Nicotine dependence, cigarettes, uncomplicated; F12.10 Cannabis abuse, uncomplicated; F14.10 Cocaine abuse, uncomplicated; F15.10 Other stimulant abuse, uncomplicated; Y92.89 Other specified places as the place of occurrence of the external cause

== ENCOUNTER 2019-07-07 13:14 | Emergency (ER) | payer SELFPAY ==
[~2019-07-07] VITALS: Wt 72.6 kg
== END 2019-07-07 13:55 | disposition left against medical advice (07) ==
LOC: ED 13:14
DX: T50.901A Poisoning by unspecified drugs, medicaments and biological substances, accidental (unintentional), initial encounter (principal); R40.20 Unspecified coma; F19.10 Other psychoactive substance abuse, uncomplicated; F14.90 Cocaine use, unspecified, uncomplicated; F12.90 Cannabis use, unspecified, uncomplicated; F11.90 Opioid use, unspecified, uncomplicated; F17.210 Nicotine dependence, cigarettes, uncomplicated; Y92.481 Parking lot as the place of occurrence of the external cause